=== PATIENT | female | born 1995 | race African-American/Black ===

== ENCOUNTER 2020-06-02 09:27 | Outpatient (CLI) | payer OTHER ==
[2020-06-02 23:04] LABS: SARS-CoV-2 MS2 Positive; SARS-CoV-2 N Gene Negative; SARS-CoV-2 S Gene Negative; SARS-CoV-2 by NAA Not Detected (NotDetected); SARS-CoV-2 orf1ab Negative
== END 2020-06-02 09:28 | disposition home or self-care (01) ==
LOC: LABBT 09:27
PROVIDERS: ATTEND Obstetrics & Gynecology
DX: Z01.812 Encounter for preprocedural laboratory examination (principal); Z20.828 Contact with and (suspected) exposure to other viral communicable diseases
CPT/HCPCS: 87635; U0003

== ENCOUNTER 2020-06-06 19:15 | Inpatient (IN) | payer OTHER ==
[2020-06-06 22:00] VITALS: BMI 31.3
[2020-06-06] MEDS ORDERED: Ondansetron PF 4 MG/2 ML Vial IVP PRN (22:07)
[2020-06-06] MEDS ORDERED: Promethazine HCl 25 MG/ML VIAL IM PRN (22:07)
[2020-06-06] MEDS ORDERED: NS / Oxytocin 40 units/1000ml 1,000 ML IV PRN (22:07)
[2020-06-06] MEDS ORDERED: Diphenoxylate HCl/Atropine Tablet PO PRN ×2 (22:07)
[2020-06-06] MEDS ORDERED: Lidocaine 1% (PF) 30 ML VIAL SC PRN (22:07)
[2020-06-06] MEDS ORDERED: Acetaminophen 500 MG TAB PO PRN (22:07)
[2020-06-06] MEDS ORDERED: Docusate 100 MG CAP PO PRN (22:07)
[2020-06-06] MEDS ORDERED: HYDROcodone/Acetaminophen 5/325 mg Tablet PO PRN ×2 (22:07)
[2020-06-06] MEDS ORDERED: hydrALAZINE 20 MG/ML VIAL SLOW IVP PRN (22:07)
[2020-06-06] MEDS ORDERED: Zolpidem Tartrate 5 MG TAB PO PRN (22:07)
[2020-06-06] MEDS ORDERED: Ibuprofen 800 MG TAB PO PRN (22:07)
[2020-06-06] MEDS ORDERED: Misoprostol 200 MCG TAB PR PRN (22:07)
[2020-06-06] MEDS ORDERED: Butorphanol Tartrate 1 MG/ML VIAL SLOW IVP PRN (22:07)
[2020-06-06 22:25] LABS: Hemoglobin 10.8 g/dL (12.0-16.0); Mean Corpuscular HGB CONC 33.6 g/dL (32.0-36.0); Mean Corpuscular Hemoglobin 30.9 pg (27.0-31.0); Mean Corpuscular Volume 92.1 fL (78.0-98.0); Mean Platelet Volume 9.9 fL (7.4-10.4); Platelet Count 158 thou/uL (130-400); RBC Distribution Width 12.4 % (11.5-14.5); Red Blood Cell (RBC) Count 3.48 mill/uL (4.20-5.40); White Blood Cell (WBC) Count 8.4 thou/uL (4.8-10.8)
[2020-06-06] MEDS: Misoprostol 100 MCG TAB VAG SCH (22:25)
[2020-06-06] MEDS ORDERED: Penicillin G Potassium 5 MILL.UNITS in Sodium Chloride 0.9% 100 ML IVPB SCH (22:30)
[2020-06-06] MEDS ORDERED: NS w/ Oxytocin 10 units 500 ML IV SCH (22:30)
[2020-06-06 23:03] LABS: Syphilis Antibody Nonreactive (Nonreactive); Syphilis Antibody Index 0.07 S/CO (<1.00 Non-Reactive)
[2020-06-06 23:04] LABS: HBSAg Index 0.17 S/CO (0-0.99); Hep B Surf Ag Non-Reactive S/CO (NonReactive)
[2020-06-07] MEDS: NS w/ Oxytocin 10 units 500 ML IV SCH ×2 (01:17→12:38)
[2020-06-07] MEDS: Misoprostol 100 MCG TAB VAG SCH (01:34)
[2020-06-07] MEDS: Penicillin G 2.5 MILL.units 2.5 MILL.UNITS in Premix Bag 1 BAG IVPB SCH ×3 (02:28→13:23)
[2020-06-07] MEDS: Lactated Ringer's 1,000 ML IV SCH ×3 (02:31→14:58)
[2020-06-07] MEDS ORDERED: DISCONTINUE ALL PREVIOUS NARCOTICS FS SCH (10:30)
[2020-06-07] MEDS ORDERED: Bupivacaine 0.5% 20 ML, fentaNYL Citrate/PF 400 MCG in Sodium Chloride 0.9% 72 ML EPIDURAL SCH (10:30)
[2020-06-07] MEDS ORDERED: Ondansetron PF 4 MG/2 ML Vial IVP PRN ×2 (11:58→18:28)
[2020-06-07] MEDS ORDERED: Naloxone HCl 0.4 mg/ml Vial IVP PRN ×2 (11:58)
[2020-06-07] MEDS ORDERED: Lactated Ringer's 500 ML IV PRN (11:58)
[2020-06-07] MEDS ORDERED: Promethazine HCl 25 MG/ML VIAL IM PRN (11:58)
[2020-06-07] MEDS ORDERED: diphenhydrAMINE 50 MG/ML VIAL IVP PRN (11:58)
[2020-06-07] MEDS ORDERED: ePHEDrine 50 MG/ML VIAL SLOW IVP PRN (11:58)
[2020-06-07] MEDS ORDERED: Acetaminophen 325 MG TAB PO PRN (11:58)
[2020-06-07] MEDS ORDERED: Fentanyl 4 mcg/Bupivacaine 0.1% Cassette 100 ML EPIDURAL SCH (12:00)
[2020-06-07] MEDS ORDERED: Communication Order-Pharmacy FS SCH (12:00)
[2020-06-07] MEDS ORDERED: NS w/ Oxytocin 30 units 500 ML ONE (16:22)
[2020-06-07] MEDS ORDERED: Lidocaine 1% (PF) 30 ML VIAL ONE (16:23)
[2020-06-07] MEDS ORDERED: HYDROcodone/Acetaminophen 5/325 mg Tablet PO PRN ×2 (18:28)
[2020-06-07] MEDS ORDERED: Zolpidem Tartrate 5 MG TAB PO PRN (18:28)
[2020-06-07] MEDS ORDERED: hydrALAZINE 20 MG/ML VIAL SLOW IVP PRN (18:28)
[2020-06-07] MEDS ORDERED: Adacel (T-DAP) 0.5 ML SYRINGE IM ONE (18:28)
[2020-06-07] MEDS ORDERED: Lanolin Ointment 7 GM TUBE TOP PRN (18:28)
[2020-06-07] MEDS ORDERED: Bisacodyl 10 MG SUPP PR PRN (18:28)
[2020-06-07] MEDS ORDERED: Misoprostol 200 MCG TAB VAG PRN (18:28)
[2020-06-07] MEDS ORDERED: Milk Of Magnesia 30 ML UDCUP PO PRN (18:28)
[2020-06-07] MEDS ORDERED: Benzocaine-Menthol 82.5 ML CAN TOP PRN (18:28)
[2020-06-07] MEDS ORDERED: Preparation H Ointment 28 GM TUBE PR PRN (18:28)
[2020-06-07] MEDS ORDERED: diphenhydrAMINE 25 MG CAP PO PRN (18:28)
[2020-06-07] MEDS ORDERED: NS / Oxytocin 40 units/1000ml 1,000 ML IV SCH (18:30)
[2020-06-08 06:14] LABS: Hemoglobin 8.9 g/dL (12.0-16.0); Mean Corpuscular HGB CONC 34.6 g/dL (32.0-36.0); Mean Corpuscular Hemoglobin 31.8 pg (27.0-31.0); Mean Platelet Volume 9.5 fL (7.4-10.4); Platelet Count 130 thou/uL (130-400); RBC Distribution Width 12.3 % (11.5-14.5); Red Blood Cell (RBC) Count 2.78 mill/uL (4.20-5.40); White Blood Cell (WBC) Count 10.7 thou/uL (4.8-10.8)
[2020-06-08] MEDS: Docusate Calcium (SURFAK) 240 MG CAP PO SCH ×3 (08:18→23:20)
[2020-06-08] MEDS: Ibuprofen 800 MG TAB PO SCH ×5 (08:18→23:20)
[2020-06-08] MEDS: Ferrous Sulfate 325 MG TAB PO SCH ×2 (08:19→17:00)
[2020-06-08] MEDS: Prenatal Vitamin 1 TAB PO SCH (08:36)
[2020-06-08] MEDS: Misoprostol 100 MCG TAB VAG SCH (08:38)
[2020-06-08] MEDS: Penicillin G 2.5 MILL.units 2.5 MILL.UNITS in Premix Bag 1 BAG IVPB SCH (08:38)
[2020-06-09] MEDS: Ibuprofen 800 MG TAB PO SCH (05:48)
[2020-06-09 08:16] VITALS: BP 110/74; TEMP 98.3
[2020-06-09] MEDS: Docusate Calcium (SURFAK) 240 MG CAP PO SCH (08:51)
[2020-06-09] MEDS: Prenatal Vitamin 1 TAB PO SCH (08:52)
[2020-06-09] MEDS: Ferrous Sulfate 325 MG TAB PO SCH (08:52)
== END 2020-06-09 11:45 | disposition home or self-care (01) | DRG 807 ==
LOC: L&D-LIB 21:04 → 3SW 06-07 22:18
PROVIDERS: ADMIT Obstetrics & Gynecology; ATTEND Obstetrics & Gynecology
PROC: 3E0P7VZ Introduction of Hormone into Female Reproductive, Via Natural or Artificial Opening (ICD-10-PCS; 2020-06-06)
PROC: 10D07Z6 Extraction of Products of Conception, Vacuum, Via Natural or Artificial Opening (ICD-10-PCS; principal; 2020-06-07)
PROC: 0KQM0ZZ Repair Perineum Muscle, Open Approach (ICD-10-PCS; 2020-06-07)
PROC: 10907ZC Drainage of Amniotic Fluid, Therapeutic from Products of Conception, Via Natural or Artificial Opening (ICD-10-PCS; 2020-06-07)
DX: O99.824 Streptococcus B carrier state complicating childbirth (principal); Z37.0 Single live birth; Z3A.39 39 weeks gestation of pregnancy; Z86.19 Personal history of other infectious and parasitic diseases; O70.1 Second degree perineal laceration during delivery; O32.8XX0 Maternal care for other malpresentation of fetus, not applicable or unspecified; Z20.828 Contact with and (suspected) exposure to other viral communicable diseases; O99.02 Anemia complicating childbirth; D64.9 Anemia, unspecified
CPT/HCPCS: 36415; 51702; 85027; 86780; 86850; 86900; 86901; 87340; J2540; J3010; J3490